=== PATIENT | male | born 1965 | race Caucasian/White ===

== ENCOUNTER 2021-04-10 13:46 | Outpatient (RCR) | payer OTHER, SELFPAY ==
[2021-04-10] MEDS: ACETAMINOPHEN 325 MG TABLET 650 MG PO (15:28)
[2021-04-10] MEDS: diphenhydrAMINE HCl CAP 25 MG CAPSULE PO (15:28)
[2021-04-10] MEDS: FAMOTIDINE 20 MG TABLET PO (15:28)
[2021-04-10 15:35] VITALS: BP 102/61; PULSE 84; RESP 20; TEMP 37; O2SAT 96
[2021-04-10 16:37] VITALS: BP 115/72
== END 2021-04-10 17:00 ==
LOC: AMCINF 13:46
PROVIDERS: PCP Family Medicine Sports Medicine; Visit Provider Internal Medicine Hematology & Oncology
DX: U07.1 COVID-19 (principal); I25.10 Atherosclerotic heart disease of native coronary artery without angina pectoris; I10 Essential (primary) hypertension
CPT/HCPCS: A9270; M0243; Q0244

== ENCOUNTER 2021-06-19 14:17 | Emergency (ER) | payer OTHER, SELFPAY ==
[2021-06-19] VITALS (39 sets, daily range): BP systolic 96–121; BP diastolic 40–71; PULSE 89–115; RESP 14–24; TEMP 36.4; O2SAT 14–100
--- NOTE | ~2021-06-19 | CT_ITS ---
EXAMINATION: CT brain wo [facility] EXAM DATE: 06/19/2021 16:10 INDICATION: altered mental status . TECHNIQUE: Spiral CT of the head was performed without contrast. Axial, coronal and sagittal images were reviewed. The dose-length product (DLP) for this examination was 605.33 mGy-cm. The exposure w as tailored according to patient size, and iterative reconstruction (ASIR) was used as additional dos e reduction technique. Comparison is made to prior examination from 08/30/2009. FINDINGS: There is no acute intraparenchymal hemorrhage. No evidence of intraparenchymal brain mass lesion. No evidence of acute infarction. There is no mass effect or midline shift. The ventricles are normal in size. There are no extra-axial collections. There are no acute calvarial fractures. T he orbits are unremarkable. Soft tissue is unremarkable. The visualized sinuses and mastoid air fernando ls are well aerated. IMPRESSION: 1. No acute intracranial findings. Reviewed, dictated and finalized at location G.
--- NOTE | ~2021-06-19 | CT_ITS ---
EXAMINATION: CT abdomen pelvis wo con EXAM DATE: 06/19/2021 16:11 INDICATION: Elevated liver enzymes, jaundice TECHNIQUE: Spiral CT of the abdomen and pelvis was performed without contrast. Axial, coronal and s agittal images of the abdomen and pelvis were reviewed. The dose-length product (DLP) for this exami nation was 1301.24 mGy-cm. The exposure was tailored according to patient size (auto mA exposure con trol), and iterative reconstruction (ASIR) was used as additional dose reduction technique. There is no prior study for comparison. FINDINGS: Mildly dense material within the gallbladder, could be vicarious excretion of contrast. The re is hazy gallbladder wall but only mild distention. No calcified cholelithiasis. Cholecystitis not excludable, but could be chronic given history provided. Gallbladder wall edema could also be caused from liver failure. The liver, spleen, adrenal glands and pancreas are unremarkable. There is no nephrolithiasis or hydr onephrosis. The prostate is unremarkable. The bladder is unremarkable. There is no retroperitonea l or pelvic lymphadenopathy. There is mild scattered arteriosclerotic disease. The appendix is normal. There is mild scattered colonic diverticulosis. There is no adjacent inflamm atory change to suggest diverticulitis. The stomach and small bowel are unremarkable. There is expe cted amount of colonic stool. No free intraperitoneal gas. Trace bilateral pleural effusions. Bib asilar subsegmental atelectasis. Trace pericardial effusion. The lung bases are unremarkable. There are no osteoblastic or osteolytic lesions identified. L5-S1 moderate to severe bilateral neural fora laz stenosis. IMPRESSION: 1. Gallbladder with mildly dense bile, vicarious excretion of contrast? Mildly indistinct gallbladde r wall which could be reactive from liver disease, but chronic or acute cholecystitis not excludable. 2. Mild scattered colonic diverticulosis. 3. Trace pleural, pericardial effusions. 4. Basilar subsegmental atelectasis. Reviewed, dictated and finalized at location G. IMPRESSION: 1. Gallbladder with mildly dense bile, vicarious excretion of contrast? Mildly indistinct gallbladder wall which could be reactive from liver disease, but ch ronic or acute cholecystitis not excludable. 2. Mild scattered colonic diverticulosis. 3. Trace pleural, pericardial effusions. 4. Basilar subsegmental atelectasis.
--- NOTE | ~2021-06-19 | XR_ITS ---
EXAMINATION: XR chest 2V DATE: 06/19/2021 14:55 INDICATION: Generalized weakness, sore throat, congestion TECHNIQUE: Frontal and lateral views of the chest are obtained COMPARISON: None available FINDINGS: The lungs are free of acute opacities. There is no pleural effusion or pneumothorax. The ca rdiomediastinal silhouette is normal. There is mild thoracic spondylosis. IMPRESSION: 1. No acute cardiopulmonary abnormality. Reviewed, dictated and finalized at location B.
--- NOTE | 2021-06-19 14:39 | ECG_ITS ---
Measurements Intervals [place] Rate: 94 P: 44 TX: 163 QRS: 16 QRSD: 111 T: 111 QT: 368 QTc: 461 Interpretive Statements SINUS RHYTHM LOW QRS VOLTAGE IN PRECORDIAL LEADS [QRS DEFLECTION < 1.0 mV IN CHEST LEADS] MODERATE INTRAVENTRICULAR CONDUCTION DELAY [110+ ms QRS DURATION] MODERATE T-WAVE ABNORMALITY, CONSIDER LATERAL ISCHEMIA [-0.1+ mV T WAVE IN I/aVL/V5/V6] ABNORMAL EKG NO PREVIOUS ECG AVAILABLE FOR COMPARISON Electronically Signed On 06-19-2021 17:54:37 CDT by Victoriano Torres M.D.
[2021-06-19 15:39] LABS: Basophils Percent Auto 0.3 % (0.2-1.2); Hematocrit 37.5 % (42.0-52.0); Hemoglobin 13.2 g/dL (14.0-18.0); Immature Granulocyte Absolute 0.05 K/mm3 (0.00-0.031); Immature Granulocyte Percent A 0.7 % (0-0.5); Immature Platelet Fraction Pct 10.2 % (0.9-11.2); Lymphocytes Absolute Auto 2.03 K/mm3 (0.9-3.2); Lymphocytes Percent Auto 27.2 % (18.3-44.2); Mean Corpuscular HGB Conc 35.2 g/dl (32-36); Mean Corpuscular Hemoglobin 31.4 pg (26-34); Mean Corpuscular Volume 89.1 fl (80-100); Monocytes Absolute Auto 0.5 K/mm3 (0.1-0.6); Monocytes Percent Auto 6.7 % (2.6-8.5); Neutrophils Absolute Auto 4.9 K/mm3 (1.3-6.7); Neutrophils Percent Auto 65.1 % (45.5-73.1); Platelet Count Result 124 k/mm3 (150-375); Red Blood Count 4.21 M/mm3 (4.6-6.20); Red Cell Distribution Width 14.3 % (11.5-14.5); White Blood Count 7.5 K/mm3 (4.5-10.0)
[2021-06-19 15:48] LABS: Alanine Aminotransferase 341 U/L (4-50); Albumin Level 3.7 g/dL (3.5-5.1); Alkaline Phosphatase 210 U/L (38-126); Anion Gap 15 mmol/L (8-16); Aspartate Amino Transferase 348 U/L (17-59); Bilirubin,Total 7.9 mg/dL (0.2-1.3); Blood Urea Nitrogen 55 mg/dL (9-20); Carbon Dioxide 14 mmol/L (22-30); Chloride 95 mmol/L (98-107); Estimated CRCL calculation 24 ml/min; Estimated Glomerular Filt Rate 15; Glucose 202 mg/dL (65-110); Potassium 4.3 mmol/L (3.4-5.0); Sodium 124 mmol/L (137-145)
--- NOTE | 2021-06-19 15:53 | ED.AMS ---
HPI - Altered Mental Status General Chief Complaint: Altered Mental Status <Kitty Barreto APRN - Last Filed: 06/20/21 09:08> Stated Complaint: Multiple Complaints <Kitty Barreto STEWARD/STEWARDESS NIGHT - Last Filed: 06/20/21 09:08> Time Seen by Provider: 06/19/21 15:42 <Kitty Barreto STEWARD/STEWARDESS NIGHT - Last Filed: 06/20/21 09:08> History of Present Illness HPI narrative: 56 y/o male presents to the ER today for evaluation for confusion episodes, hallucinations. He had fever up to 102 last week on and Thursday. He started to have some sore throat on Thursday. He saw his PCP on Thursday. <Kitty Barreto STEWARD/STEWARDESS NIGHT - Last Filed: 06/20/21 09:08> Related Data Allergies/Adverse Reactions: Allergies Allergy/AdvReac Type Severity Reaction Status Date / Time No Known Allergies Allergy Verified 06/19/21 14:36 <Kitty Barreto APRN - Last Filed: 06/20/21 09:08> Course Vital Signs Vital signs: Vital Signs Pulse Oximetry 100 06/19/21 14:23 Temperature 36.4 C 06/19/21 14:24 Pulse Rate 100 06/20/21 02:20 Respiratory Rate 16 06/20/21 02:20 Blood Pressure 104/60 06/20/21 02:20 Pulse Oximetry 97 06/20/21 02:20 <Kitty Barreto STEWARD/STEWARDESS NIGHT - Last Filed: 06/20/21 09:08> Vital Signs Pulse Oximetry 100 06/19/21 14:23 Temperature 36.4 C 06/19/21 14:24 Pulse Rate 100 06/20/21 02:20 Respiratory Rate 16 06/20/21 02:20 Blood Pressure 104/60 06/20/21 02:20 Pulse Oximetry 97 06/20/21 02:20 <Trey Cormier MD - Last Filed: 06/19/21 20:40> MDM - Altered Mental Status MDM Narrative Medical decision making narrative: Since we do not have GI on-call or infectious disease patient will need to be transferred to a tertiary care hospital. Patient request to be transferred to [facility] since he established there. Discussed with Dr Kulkarni, hospitalist at [facility] and accepted the transfer <Trey Cormier MD - Last Filed: 06/19/21 20:40> Lab Data Result diagrams: : 06/19/21 15:18 06/19/21 15:18 <Kitty Barreto APRN - Last Filed: 06/20/21 09:08> Labs: Lab Results 06/19/21 06/19/21 06/19/21 Range/Units 15:18 15:18 15:18 WBC 7.5 (4.5-10.0) K/mm3 RBC 4.21 L (4.6-6.20) M/mm3 Hgb 13.2 L (14.0-18.0) g/dL Hct 37.5 L (42.0-52.0) % MCV 89.1 (80-100) fl MCH 31.4 (26-34) pg MCHC 35.2 (32-36) g/dl RDW 14.3 (11.5-14.5) % Plt Count 124 L (150-375) k/mm3 MPV 11.0 H (7.4-10.4) fl Immature Gran % (Auto) 0.7 H (0-0.5) % Neut % (Auto) 65.1 (45.5-73.1) % Lymph % (Auto) 27.2 (18.3-44.2) % [place] % (Auto) 6.7 (2.6-8.5) % Eos % (Auto) 0.0 (0-4.4) % Baso % (Auto) 0.3 (0.2-1.2) % Lymph # (Auto) 2.03 (0.9-3.2) K/mm3 [place] # (Auto) 0.5 (0.1-0.6) K/mm3 Eos # (Auto) 0.0 (0-0.3) K/mm3 Baso # (Auto) 0.0 (0.0-0.1) K/mm3 Abs Immat Gran (auto) 0.05 H (0.00-0.031) K/mm3 Absolute Neuts (auto) 4.9 (1.3-6.7) K/mm3 Absolute Nucleated RBC 0.0 (0.0-0.012) K/mm3 Nucleated RBC % 0.0 (0.0-0.2) % % Immature Plt Fraction 10.2 (0.9-11.2) % ESR (0-20) mm/hr PT (11.1-14.7) Seconds INR Sodium 124 L (137-145) mmol/L Potassium 4.3 (3.4-5.0) mmol/L Chloride 95 L (98-107) mmol/L Carbon Dioxide 14 L (22-30) mmol/L Anion Gap 15 (8-16) mmol/L BUN 55 H (9-20) mg/dL Creatinine 4.20 H (0.7-1.3) mg/dL Estim Creat Clear Calc 24 ml/min Estimated GFR 15 L (59 - ) Glucose 202 H (65-110) mg/dL Lactic Acid (0.7-2.1) mmol/L Calcium 8.0 L (8.4-10.2) mg/dL Total Bilirubin 7.9 H (0.2-1.3) mg/dL AST 348 H (17-59) U/L ALT 341 H (4-50) U/L Alkaline Phosphatase 210 H (38-126) U/L Ammonia (9-30) umol/L Total Creatine Kinase Troponin I 0.042 H* (0.000-0.034) ng/mL C-Reactive Protein Total Protein 7.0 (6.3-8.2) g/dL Albumin 3.7
[2021-06-19] MEDS: SODIUM CHLORIDE 0.9% IV 1,000 ML 999 ML IV CONT ×2 (16:19→18:15)
[2021-06-19 16:49] LABS: Monoscreen Negative (Negative); Negative Monotest Control Negative (Negative); Positive Monotest Control Positive (Positive)
[2021-06-19 17:06] LABS: Troponin I 0.042 ng/mL (0.000-0.034)
[2021-06-19 17:08] LABS: Ammonia < 9 umol/L (9-30)
[2021-06-19 17:18] LABS: INR 1.1; Prothrombin Time 13.5 Seconds (11.1-14.7)
[2021-06-19] MEDS: MORPHINE SULFATE (*CRX) 2 MG/ML INJ IV PUSH ×2 (17:22→23:22)
[2021-06-19] MEDS: ONDANSETRON INJ 4 MG/2 ML VIAL IV PUSH (17:22)
[2021-06-19 17:57] LABS: Hepatitis B Surface Antigen Negative (Negative)
[2021-06-19 18:02] LABS: HAV RESULT Negative (Negative); Hepatitis B Core IgM Result Negative (Negative)
[2021-06-19 18:14] LABS: Hepatitis C Virus Antibody Negative (Negative)
[2021-06-19] MEDS: MAGNES & ALUM HYD/SIMETH/DIPHENHYD/LIDOCAINE 119 ML MOUTHWASH BY MOUTH (18:14)
[2021-06-19 18:24] LABS: Alveolar/Arterial O2 Gradient 33.6 mmHg; Base Excess ABG -9.9 mEq/l (+/-2.0); Fractional Inspired Oxygen 21 %; HCO3 ABG 14.1 mEq/l (22.0-26.0); Oxygen Content ABG 18.2 %vol (16.0-22.0); Oxyhemoglobin 94.7 % THb (90.0-100.0); PCO2 ABG 26.6 mmHg (35.0-45.0); PO2 ABG 84.3 mmHg (80.0-100.0); PO2 FiO2 Ratio Arterial Blood 4.01 %; Total Hemoglobin 13.6 g/dL (12.0-18.0); pH ABG 7.342 (7.350-7.450)
[2021-06-19 18:25] LABS: Device ROOM AIR; Modified Allen's Test Pass; Site Drawn RIGHT RADIAL
[2021-06-19 18:28] LABS: Add Urine Microscopic? YES; Amorphous Sediment Urine Few; Appearance Urine Cloudy (Clear); Bacteria Urine Trace /hpf; Bilirubin Urine Negative (Negative); Blood Urine 2+ (Negative); Color Urine Amber (Yellow); Glucose Urine UA Negative (Negative); Ketones Urine Negative (Negative); Leukocyte Esterase Ur Negative LEU/UL (Negative); Mucus Urine Rare /lpf; Nitrate Urine Negative (Negative); Protein Urine 1+ mg/dL (Negative); Specific Grav Ur 1.016 (1.001-1.035); Squamous Epithelial Cell Urine Rare /hpf (Few); Urobilinogen Urine Negative mg/dL (<2.0); WBC Urine 0-3 /hpf
[2021-06-19 19:07] LABS: Acetaminophen < 10 ug/mL (10-30); Salicylate < 1.0 mg/dL (2-20)
[2021-06-19 19:09] LABS: Lactic Acid Reflex 2.1 mmol/L (0.7-2.1)
[2021-06-19 19:10] LABS: CRP 2.2 mg/dL (<1.0); Creatine Kinase 271 U/L (55-170)
[2021-06-19 19:24] LABS: Erythrocyte Sedimentation Rate 5 mm/hr (0-20)
[2021-06-19 19:25] LABS: Troponin I 0.037 ng/mL (0.000-0.034)
[2021-06-19 19:26] LABS: Amphetamine Screen Urine Negative (Negative); Barbiturate Screen Urine Negative (Negative); Benzodiazepines Screen Urine Negative (Negative); Cannabinoid Screen Urine Negative (Negative); Cocaine Screen Urine Negative (Negative); Methadone Screen Urine Negative (Negative); Opiate Screen Urine Negative (Negative); Phencyclidine Screen Urine Negative (Negative)
--- NOTE | 2021-06-19 19:37 | PC.NURSE ---
Dr. Cormier at bedside.
[2021-06-19 19:44] LABS: Thyroid Stimulating Hormone Reflex 0.431 uIU/mL (0.465-4.68)
[2021-06-19 19:59] LABS: SARS-CoV-2 RNA PCR Negative
[2021-06-19 20:11] LABS: Free T4 Free Thyroxine Reflex 1.35 ng/dL (0.78-2.19)
[2021-06-19 21:07] LABS: Total Triiodothyronine (T3) 1.08 NG/ML (0.97-1.69)
[2021-06-19 21:46] LABS: Reflex Lactic Acid Yes or No Add Lactic
--- NOTE | 2021-06-19 22:22 | PC.NURSE ---
Report given to MICHELLE Rodríguez at [facility] at [id number]. [facility] accepted transfer for 1230.
[2021-06-20 01:41] VITALS: BP 147/95; PULSE 91; RESP 14; O2SAT 97
[2021-06-20 02:20] VITALS: BP 104/60; PULSE 100; RESP 16; O2SAT 97
== END 2021-06-20 02:26 | disposition short-term general hospital (02) ==
PROVIDERS: Emergency Medicine; Nurse Practitioner Family; Emergency Provider Emergency Medicine; PCP Family Medicine Sports Medicine
DX: N17.9 Acute kidney failure, unspecified (principal); K72.00 Acute and subacute hepatic failure without coma; Z20.822 Contact with and (suspected) exposure to COVID-19; K83.1 Obstruction of bile duct
CPT/HCPCS: 36415; 36600; 70450; 71046; 74176; 80053; 80074; 80307; 81001; 82140; 82550; 82805; 83605; 84439; 84443; 84480; 84484; 85025; 85055; 85610; 85652; 86140; 86308; 87081; 87880; 93005; 96361; 96374; 96375; 96376; 99285; A9270; C9803; J2270; J2405; J7030; U0003; U0005